=== PATIENT | male | born 1955 | race Caucasian/White ===

== ENCOUNTER 2020-03-08 00:05 | Observation (INO) | payer OTHER ==
[~2020-03-08] VITALS: Ht 165.1 cm; Wt 72.6 kg
[2020-03-08 00:11] VITALS: Ht 165.1 cm; Wt 72.6 kg
--- NOTE | 2020-03-08 00:59 | NUR ---
PT CAME IN WITH A C/C OF LEFT SHOULDER PAIN X2 HOURS. PT STATES HE WAS AT HOME WATCHING TV WHEN SHOULDER BEGAN TO START HURTING. PT DENIES ANY RECENT TRAUMA TO THE AFFECTED AREA. PT DENIES ANY MEDICAL HX. PT REPORTS PAIN IS THROBBING AND RADIATES DOWN LEFT ARM. PT DENIES ANY CHEST PAIN. PT REPORTS PAIN WHEN MOVING AFFECTED EXTREMITY. PT AAO X4 RESPIRATIONS E/U NO DISTRESS NOTED.
--- NOTE | 2020-03-08 01:31 | NUR ---
REPORT RECIEVED FROM LON RENTERIA. I WILL ASSUME FURTHER CARE OF THIS PT
--- NOTE | 2020-03-08 01:33 | NUR ---
DR CASTRO AT THE BEDSIDE TO DISCUSS PLAN OF CARE
--- NOTE | 2020-03-08 01:45 | NUR ---
EKG AT THE BEDSIDE
[2020-03-08 02:33] LABS: BASOPHIL % 0.3 % (0-2); PLATELET COUNT 276 x10^3mcL (130-400); RED CELL DISTRIBUTION WIDTH 12.9 % (11.5-14.5)
--- NOTE | 2020-03-08 02:53 | NUR ---
PER EMT DOUGLAS, PT REFUSED SLING. PT STATES "IT DOESNT HELP I NEED TO KEEP MOVING MY ARM AROUND". DR CASTRO MADE AWARE
[2020-03-08 03:09] LABS: ERYTHROCYTE SED RATE 22 mm/hr (0-20)
--- NOTE | 2020-03-08 03:20 | NUR ---
PT NOTED SITTING UP IN ER [facility]. PT REPORTS "THE PAIN IS WORSE NOTHING IS HELPING". PT REPORTS LEFT SHOULDER PAIN 10/10 AT THIS TIME. MD MADE AWARE. PT REPOSITIONED FOR COMFORT. AWAITING FURTHER ORDERS
--- NOTE | 2020-03-08 03:35 | NUR ---
PT AMBULATED TO RESTROOM AND BACK WITH STEADY GAIT
[2020-03-08 03:46] LABS: CALCIUM 8.8 mg/dL (8.5-10.1); CARBON DIOXIDE 24.5 mmol/L (21-32); CHLORIDE SERUM 100 mmol/L (98-107); CREATININE SERUM 1.4 mg/dL (0.7-1.3); GFR1 54 mL/min; GLUCOSE SERUM 186 mg/dL (74-106); POTASSIUM SERUM 3.4 mmol/L (3.5-5.1); SODIUM SERUM 137 mmol/L (136-145)
[2020-03-08 03:51] LABS: ALBUMIN 3.5 g/dL (3.4-5.0); ALKALINE PHOSPHATASE 86 U/L (46-116); ALT/SGPT 31 U/L (16-63); AST/SGOT 26 U/L (15-37); BILIRUBIN TOTAL 0.35 mg/dL (0.20-1.00); C REACTIVE PROTEIN 1.6 mg/dL (<=0.9); TOTAL PROTEIN, SERUM 7.3 g/dL (6.4-8.2)
--- NOTE | 2020-03-08 04:23 | NUR ---
DR CASTRO AT THE BEDSIDE
--- NOTE | 2020-03-08 04:41 | NUR ---
DR CASTRO AT THE BEDSIDE FOR PROCEDURE. CONSENT SIGNED AND PLACED IN CHART.
--- NOTE | 2020-03-08 06:35 | NUR ---
SPOKE WITH PT FAMILY ABOUT PT STATUS AND ADMIT ORDERS. PHONE NUMBER TO CONTACT [phone]
--- NOTE | 2020-03-08 07:06 | NUR ---
REPORT GIVEN TO LON BRUNSON AND LON LANDIS. THEY WILL ASSUME FURTHER CARE OF THIS PT
[2020-03-08 07:20] LABS: APPEARANCE FLUID BLOODY; COLOR FLUID RED
[2020-03-08 07:21] LABS: RBC FLUID 157000 /cumm; WBC FLUID 24800 /cumm
[2020-03-08 07:22] LABS: LYMPHOCYTE FLUID 5 %
[2020-03-08 07:27] LABS: SOURCE FLUID SYNOVIAL FLUID
[2020-03-08 07:28] LABS: SITE FLUID LEFT
[2020-03-08 07:28] LABS: SITE FLUID LEFT; SOURCE FLUID SYNOVIAL FLUID
--- NOTE | 2020-03-08 08:01 | NUR ---
PT REPOSITIONED TO A COMFORTABLE POSITION, GIVEN NEW GOWN/BLANKETS AND PILLOW. PT STATED MEDS WERE HELPING W/ PAIN. PT A0X4, CURRENTLY ON GURNEY, RESP E/U, FCM, CALL LIGHT WITHIN REACH, SIDERAILS X2. PT APPEARS TO BE IN NO ACUTE DISTRESS AT THE MOMENT. WILL CONTINUE TO MONITOR.
--- NOTE | 2020-03-08 08:11 | NUR ---
PT REPORT GIVEN TO CORNELIO FORREST, FOR CONTINUATION OF CARE.
--- NOTE | 2020-03-08 08:30 | NUR ---
RECEIVED REPORT FROM ER NURSE. PT ARRIVED VIA [employer] [phone] ACCOMPANIED BY TWO ER NURSES. PT WAS SEEN AMBULATING TO BED. PT WENT DOWN FOR CT SCAN TO THE LEFT SHOULDER. WILL FINISH MY ASSESSMENT WHEN PT COMES BACK ONTO THE FLOOR.
--- NOTE | 2020-03-08 08:50 | NUR ---
PT ARRIVED BACK ONTO FLOOR FROM CT SCAN IN STABLE CONDITION. PT IS A/0X4. ABLE TO MAKE NEEDS KNOWN. ADMITTED TO THE FLOOR FOR LEFT SHOULDER PAIN. LUNG SOUNDS CTA. BREATHING E/U ON RA. DENIES SOB. MRSA SWAB DONE. TELE #[phone]. DENIES CHEST PAIN OR PALPITATIONS. PULSES EVEN AND PALPABLE. NO EDEMA NOTED. ACTIVE BSX4. ABD SOFT AND FLAT. PT STATED THAT HIS LBM WAS ON 03/07. DENIES N/V/D. VOIDS FREELY. AMBULATORY BASELINE. SKIN INTACT. C/O 12/19 NONRADIATING ACHING PAIN TO LEFT SHOULDER. WILL MEDICATE PER EMAR. IV 22G TO RFA. SL. WILL INFUSE 0.9NS @80ML/HR PER EMAR. BED AT LOWEST POSITION. CALL BUTTON WITHIN REACH. WILL CONTINUE TO MONITOR.
--- NOTE | 2020-03-08 08:51 | NUR ---
RECEIVED REPORT FROM ER NURSE. PT ARRIVED VIA [facility] @ 8:30AM ACCOMPANIED BY TWO ER NURSES. PT WAS SEEN AMBULATING TO BED. @8:50, PATIENT WENT DOWN FOR CT SCAN OF THE LEFT SHOULDER. WILL FINISH MY ASSESSMENT WHEN HE COMES BACK ONTO THE FLOOR.
[2020-03-08 11:01] VITALS: BP 113/56
[2020-03-08 11:31] VITALS: BP 128/71
[2020-03-08 16:16] VITALS: BP 109/67
--- NOTE | 2020-03-08 18:56 | NUR ---
NO ACUTE DISTRESS NOTED DURING SHIFT. WILL ENDORSE CARE TO PM SHIFT FOR CONTINUITY OF CARE.
[2020-03-08 20:10] VITALS: BP 118/71
[2020-03-08 20:30] LABS: PLATELET COUNT 231 x10^3mcL (130-400); RED CELL DISTRIBUTION WIDTH 13.4 % (11.5-14.5)
[2020-03-08 20:37] LABS: BAND NEUTROPHIL 0 % (0-10); BASOPHIL 0 % (0-2); MONOCYTE 12 % (0-7); SEGMENTED NEUTROPHILS 66 % (37-75)
[2020-03-08 20:38] LABS: rbc morphology (normal/abnorm) NORMAL (NORMAL)
[2020-03-08 21:09] LABS: ERYTHROCYTE SED RATE 33 mm/hr (0-20)
[2020-03-09 05:53] VITALS: BP 135/66
[2020-03-09 07:35] LABS: PLATELET COUNT 245 x10^3mcL (130-400); RED CELL DISTRIBUTION WIDTH 12.3 % (11.5-14.5)
[2020-03-09 07:36] LABS: BASOPHIL % 2.1 % (0-2)
[2020-03-09 07:42] LABS: CALCIUM 7.6 mg/dL (8.5-10.1); CARBON DIOXIDE 26.7 mmol/L (21-32); CHLORIDE SERUM 107 mmol/L (98-107); CREATININE SERUM 1.1 mg/dL (0.7-1.3); GFR1 > 60 mL/min; GLUCOSE SERUM 90 mg/dL (74-106); POTASSIUM SERUM 4.2 mmol/L (3.5-5.1); SODIUM SERUM 142 mmol/L (136-145)
--- NOTE | 2020-03-09 08:00 | NUR ---
RECEIVED IN BED ASSESSMENT COMPLETE C/O PAIN BUT REFUSED PAIN MED OFFERED 06/18. CALL LIGHT IN [facility] WILL CONTINUE TO MONITOR AND ASSESS
[2020-03-09 08:12] VITALS: BP 131/81
--- NOTE | 2020-03-09 12:09 | NUR ---
NO DISTRESS NOTED AT THIS TIME CALL LIGHT IN REACH CONDITION GUARDED WILL CONTINUE TO MONITOR AND ASSESS
[2020-03-09 16:50] VITALS: BP 122/69
[2020-03-09 17:33] LABS: microscopic required? NO
[2020-03-09 17:42] LABS: urine erythrocyte NEGATIVE (NEGATIVE)
--- NOTE | 2020-03-09 17:55 | NUR ---
ALL NEEDS ANTICIPATED AND MET NO SIGNIFICANT CHANGES AT THIS TIME DENIES PAIN AT THIS TIME CALL LIGHT IN REACH
[2020-03-09 20:46] VITALS: BP 117/61
[2020-03-09 21:11] LABS: PLATELET COUNT 234 x10^3mcL (130-400); RED CELL DISTRIBUTION WIDTH 13.2 % (11.5-14.5)
[2020-03-09 22:19] LABS: ERYTHROCYTE SED RATE 43 mm/hr (0-20)
[2020-03-10 06:01] VITALS: BP 125/70
--- NOTE | 2020-03-10 06:49 | NUR ---
SPOKE TO DR CLEVELAND AND LET HIM KNOW THAT PATIENT'S LEFT SHOULDER PAIN IS IMPROVED FROM YESTERDAY. PER DR. CLEVELAND, THERE WILL BE NO SURGERY. PATIENT WILL HAVE MRI ORDERED. PATIENT CAN REGULAR DIET ORDERED. PATIENT MADE AWARE OF PLAN OF CARE.
--- NOTE | 2020-03-10 07:10 | NUR ---
PATIENT IS RESTING IN BED QUEITLY. NO ADDITIONAL DISTRESS. CALL LIGHT WITHIN REACH. WILL CONT TO MONITOR.
[2020-03-10 07:40] LABS: CALCIUM 8.5 mg/dL (8.5-10.1); CARBON DIOXIDE 26.6 mmol/L (21-32); CHLORIDE SERUM 105 mmol/L (98-107); CREATININE SERUM 1.2 mg/dL (0.7-1.3); GFR1 > 60 mL/min; GLUCOSE SERUM 89 mg/dL (74-106); POTASSIUM SERUM 3.6 mmol/L (3.5-5.1); SODIUM SERUM 140 mmol/L (136-145); URIC ACID 4.9 mg/dL (3.5-7.2)
--- NOTE | 2020-03-10 08:00 | NUR ---
EXPLAINED PLAN OF CARE AND PATIENT VERBALIZED UNDERSTANDING. C/O MILD PAIN TI THE LEFT SHOULDER BUT PAIN IS TOLERATABLE PER PATIENT AND REFUSED PAIN MEDICATION AT THIS TIME. NO DISTRESS, OR SOB NOTED. WILL CONT TO MONITOR.
[2020-03-10 08:19] VITALS: BP 131/77
[2020-03-10 08:42] LABS: PLATELET COUNT 243 x10^3mcL (130-400); RED CELL DISTRIBUTION WIDTH 12.3 % (11.5-14.5)
--- NOTE | 2020-03-10 09:30 | NUR ---
PER [facility] PATIENT WILL HAVE MRI AROUND NOON TODAY. MADE PATIENT AWARE.
--- NOTE | 2020-03-10 11:04 | NUR ---
NOTIFIED PHARMACIST THAT VANCOMYCIN THROUGH IS 14.5. PER PHARMACIST OK TO ADMINISTER VANCOMYCIN. ATTENDING NURSE TERESO RACHEL.
[2020-03-10 11:21] VITALS: BP 134/69
[2020-03-10 11:29] LABS: ERYTHROCYTE SED RATE 42 mm/hr (0-20)
--- NOTE | 2020-03-10 12:00 | NUR ---
PER [facility], STILL WAITING FOR TAX EXAMINING TECHNICIAN TO COME. MRI PENDING AT THIS TIME. MADE PATIENT AWARE.
--- NOTE | 2020-03-10 15:30 | NUR ---
PER [facility] DEPT. NO CHUTE BOSS AVAILABLE AT THIS TIME. MADE PATIENT AWARE AND STATED THAT HE WANTS TO GO HOME INSTEAD OF WAITING FOR TECH TO COME AND DO MRI. WILL CALL DR GERMAN.
--- NOTE | 2020-03-10 16:00 | NUR ---
SPOKE WITH DR CRENSHAW AND STATED HE WILL DC PATIENT HOME AND NEED TO FOLLOW UP WITH DR CLEVELAND AND PCP OUTPATIENT. MADE PATIENT AWARE.
[2020-03-10] MEDS ORDERED: ACETAMINOPHEN-H1 TA1 PO (16:28)
[2020-03-10] MEDS ORDERED: AUGMENTIN1 TA1 PO (16:28)
[2020-03-10 16:59] VITALS: BP 127/56
--- NOTE | 2020-03-10 17:45 | NUR ---
DC INSTRUCTION GIVEN AND EXPLAINED AND PATIENT VERBALIZED UNDERSTANDING. ER PRECAUTION DISCUSSED WELL. PROVIDED PATIENT WITH DR ANGEL PENNINGTON AND INSTRUCT TO FOLLOW UP WITH PCP WELL. PATIENT REMOVED RIGHT HAND IV HIMSELF. IV CATH INTACT NOTED. NO BLEEDING NOTED TO SITE. AWAITING FOR SON TO SUGAR REFINERY SUPERVISOR PATIENT. WILL CONT TO MONITOR.
--- NOTE | 2020-03-10 18:00 | NUR ---
PATIENT LEFT THE UNIT IN A STABLE CONDITION ACCOMPANIED BY PRIMARY NURSE. PATIENT REFUSED TO BE WHEELED OUT AND RATHER AMBULATE TO THE LOBBY. PATIENT WAS PICKED UP BY HIS SON.
== END 2020-03-10 17:57 | disposition home or self-care (01) ==
LOC: ED 00:05 → MU 05:55 → DU 05:55 → MU 05:55
PROVIDERS: Orthopaedic Surgery; Student in an Organized Health Care Education/Training Program; ADMIT Internal Medicine; ATTEND Internal Medicine
DX: M25.512 Pain in left shoulder (principal); M25.412 Effusion, left shoulder; D72.829 Elevated white blood cell count, unspecified; M19.012 Primary osteoarthritis, left shoulder; Z90.49 Acquired absence of other specified parts of digestive tract; Z98.890 Other specified postprocedural states
CPT/HCPCS: 86431; G0378; J0696; J1885; J2001; J2270; J3010; J3370; J7030; J7050; J7060